=== PATIENT | female | born 1945 | race Caucasian/White ===

== ENCOUNTER 2019-05-27 01:20 | Outpatient (CLI) | payer MEDICARE ==
[~2019-05-27 01:20] MED LIST: INSU100V36 SQ; LANTUS SUBCUT; LISI-600 PO
== END 2019-05-27 23:59 | disposition home or self-care (01) ==
LOC: DIABETIC 01:20
PROVIDERS: ATTEND Specialist
DX: E11.9 Type 2 diabetes mellitus without complications (principal); Z79.84 Long term (current) use of oral hypoglycemic drugs; Z72.89 Other problems related to lifestyle; Z90.710 Acquired absence of both cervix and uterus
CPT/HCPCS: G0108